=== PATIENT | female | born 1980 | race Asian ===

== ENCOUNTER 2016-10-30 22:37 | Emergency (ER) | payer OTHER ==
[~2016-10-30] VITALS: Ht 154.9 cm; Wt 52.6 kg
[~2016-10-30 22:37] MED LIST: FEROSUL325 MG PO; MOTRIN 800MG T800 MG PO
--- NOTE | 2016-10-30 23:02 | ED GI/GU/ABDOMINAL COMPLAINT ---
History of Present Illness General Chief Complaint: Female Urogenital Problems Stated Complaint: VAG BLEEDING, +HOME PREG TEST Source: patient Exam Limitations: no limitations Vital Signs & Intake/Output Vital Signs & Intake/Output Vital Signs Date Time Temp Pulse Resp B/P B/P Pulse O2 O2 Flow FiO2 Mean Ox Delivery Rate 10/31 0118 97.6 63 18 110/72 99 Room Air 10/30 2243 98.5 75 20 112/77 98 Room Air ED Intake and Output 10/31 0000 10/30 1200 Intake Total Output Total Balance Patient 116 lb Weight Weight Reported by Patient Measurement Method Allergies Coded Allergies: pollen extracts (Mild, SNEEZING, COUGHING, RUNNY NOSE 10/30/16) Reconcile Medications No Known Home Medications Triage Note: TRIAGE: PT TO ER C/C VAGINAL BLEEDING, ONSET THIS AFTERNOON. WAS SPOTTING AT FIRST BUT IS HEAVIER NOW. REPORTS HAS HAD "1 VERY HEAVY WET PAD" AND "THERE HAS BEEN CLOTTING". BLOOD WAS BRIGHT RED INTIALLY BUT NOW DARK RED IN COLOR. PT CURRENTLY PER HOME TEST DONE IN THE BEGINNING OF OCTOBER. 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 WILL SEE DR SIMS. /M1. DENIES N/V/D. /M1. DENIES N/V/D. SPOKE WITH STACEY ZEPEDA IN CBC, PT TO REMAIN IN ER FOR EVAL. Triage Nurses Notes Reviewed? yes ? y Is pt currently ? No Onset: Abrupt Duration: hour(s): Timing: recent history Location: vaginal bleeding Radiation: no radiation Activities at Onset: none Prior Abdominal Problems: pt had prior miscarriage Sexually Active: Yes Modifying Factors: Worsens With: other (vaginal bleeding). Associated Symptoms: vagnal bleeding HPI: 36-year-old woman presents with vaginal bleeding. Her last menstrual period was September 09. She had been feeling lower abdominal cramps for the past 2 weeks. She took a test tonight it was positive. She notes that she has had heavy vaginal bleeding, with occasional clots. She filled 1 pad with blood prior to arrival. She has no abdominal pain, nausea, vomiting, dizziness, syncopal symptoms. She is otherwise well. Past History Travel History Traveled to [place] past 21 day No Medical History Any Pertinent Medical History? 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 No Review of Systems Review of Systems Constitutional: Reports: no symptoms. EENTM: Reports: no symptoms. Respiratory: Reports: no symptoms. Cardiovascular: Reports: no symptoms. GI: Reports: no symptoms. Genitourinary: Reports: no symptoms. Musculoskeletal: Reports: no symptoms. Skin: Reports: no symptoms. Neurological/Psychological: Reports: no symptoms. Hematologic/Endocrine: Reports: no symptoms. Immunologic/Allergic: Reports: no symptoms. All Other Systems: Reviewed and Negative Physical Exam Physical Exam General Appearance: well developed/nourished, mild distress Head: atraumatic, normal appearance Eyes: Bilateral: normal appearance. Ears, Nose, Throat, Mouth: hearing grossly normal Neck: normal inspection, supple, full range of motion Respiratory: normal breath sounds, chest non-tender, no respiratory distress, quiet respiration, lungs clear Cardiovascular: regular rate/rhythm Gastrointestinal: normal bowel sounds, soft, non-tender Pelvic: copious dark blood in vaginal vault, difficult to visualize the cervix. Extremities: normal range of motion Neurologic/Psych: no motor/sensory deficits, awake, alert, oriented x 3 Skin: intact, normal color, warm/dry Core Measures ACS in differential dx? No Severe Sepsis Present: No Septic Shock Present: No Progress Differential Diagnosis: vaginal bleeding vs miscarriage vs other. Plan of Care: Orders Procedure Date/time Status TRICHOMONAS 10/30 2320 Complete POTASSIUM HYDROXIDE (MARLA) 10/30 2320 Complete GENITAL CULTURE 10/30 2320 Active CHLAMYDIA-GC DNA PROBE 10/30 2320 Active URINALYSIS 10/30 2242 Complete HUMAN BETA HCG TITRE 10/30 2242 Complete COMPREHENSIVE METABOLIC PANEL 10/30 2242 Complete CBC WITHOUT DIFFERENTIAL 10/30 2242 Complete Laboratory Tests 10/30/168: Urine Color YEL, Urine Clarity CLEAR, Urine pH 7.0, Ur Specific [place] 1.020, Urine Protein NEG, Urine Ketones NEG, Urine Nitrite NEG, Urine Bilirubin NEG, Urine Urobilinogen 0.2, Ur Leukocyte Esterase NEG, Ur Microscopic SEDIMENT EXAMINED, Urine RBC 15-25 H, Urine WBC RARE, Ur Epithelial Cells RARE, Urine Bacteria RARE H, Urine Mucus FEW, Urine Hemoglobin MOD H, Urine Glucose NEG 10/30/16 2300: Anion Gap 14, Estimated GFR > 60, BUN/Creatinine Ratio 16.3, Glucose 88, Calcium 9.6, Total Bilirubin 0.9, AST 27, ALT 45, Alkaline Phosphatase 45, Total Protein 9.0 H, Albumin 5.1 H, Globulin 3.9, Albumin/Globulin Ratio 1.3, Beta HCG, Quant 3867.8, CBC w Diff NO MAN DIFF REQ, RBC 5.47 H, MCV 72.6 L, MCH 23.3 L, RDW 14.0, MPV 9.1, Gran % 52.6, Lymphocytes % 31.4, Monocytes % 5.9, Eosinophils % 9.5 H, Basophils % 0.6, Absolute Granulocytes 4.0, Absolute Lymphocytes 2.4, Absolute Monocytes 0.4, Absolute Eosinophils 0.7, Absolute Basophils 0, PUBS MCHC 32.1 L Microbiology 10/31 28 GENITAL: GC DNA Probe - RECD 10/31 28 GENITAL: Chlamydia DNA Probe (DERIC) - RECD 10/31 28 GENITAL: MARLA Preparation - COMP 10/31 28 GENITAL: Trichomonas Preparation - COMP 10/31 28 GENITAL: Genital Culture - RECD Diagnostic Imaging: Viewed by Me: Ultrasound. Discussed w/RAD: Ultrasound. Radiology Impression: transabd u/s... endometrial sac noted, might be artifact... serial hcg and u/s recommended. Initial ED EKG: none Prior EKG: unchanged Repeat EKG: unchanged Comments: PATIENT: SCOTT TUCKER PRESENT AGE: 36 PATIENT ACCOUNT NO: [id number] : 82 LOCATION: [facility] ORDERING PHYSICIAN: GARCÍA SAMPSON MD SERVICE DATE: 10/30/164643 EXAM TYPE: US - US TRANSVAG EXAMINATION: US TRANSVAGINAL CLINICAL INFORMATION: Vaginal bleeding/. Question ectopic. COMPARISON: None available. TECHNIQUE: Real-time grayscale sonographic imaging is performed transabdominally and then transvaginally for better visualization. FINDINGS: Exam is very limited by bowel gas. Possible slightly irregular 0.6 cm gestational sac appreciated within the endometrial cavity however this finding is not verified on the transvaginal exam. The mean sac diameter corresponds to a gestational age of 5 weeks 1 day. Endometrial stripe thickness is 1 cm. Right ovary measures 3.0 x 1.8 x 1.7 cm. No adnexal lesion. Normal Doppler waveforms. Left ovary measures 2.1 x 1.1 x 1.0 cm. No adnexal lesions. Normal Doppler waveforms. There is fluid within the pelvic cul-de-sac. IMPRESSION: Exam is very limited by bowel gas. Possible irregular 0.6 cm gestational sac identified within the endometrial cavity. Of note this is only seen on the transabdominal exam and not visualized on the transvaginal exam suggesting that this finding may be artifactual. In light of the history, serial beta hCG and follow-up ultrasounds are recommended. No adnexal lesions. DICTATED BY: DIONISIO MAO MD DATE/TIME DICTATED:10/31/16124 PROJECT MANAGER FINANCE:STACY DATE/TIME TRANSCRIBED:10/31/16124 CONFIDENTIAL, DO NOT COPY WITHOUT APPROPRIATE AUTHORIZATION. <Electronically signed in Other Vendor System> SIGNED BY: DIONISIO MAO MD 10/31/16 0132 Departure Departure Disposition: HOME OR SELF CARE Condition: Stable Clinical Impression Primary Impression: Threatened miscarriage Referrals: WENDY COSBY DO (PCP/Family) Departure Forms: Customer Survey General Discharge Information Prescriptions: Current Visit Scripts No Known Home Medications Comments 10/31/16, 0:28.... 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 if u/s showed IUP , pt to follow up later today in office. If ectopic, dr. alaniz to take pt to OR. 10/31/16, 1:45am... discussed with dr. harris and related results of the u/s... pt to be seen later today in her office. Critical Care Note Critical Care Note Critical Care Time: 30-74 min
[2016-10-30 23:10] LABS: ABSOLUTE BASOPHIL COUNT 0 /CUMM (0.0-0.2); ABSOLUTE EOSINOPHIL COUNT 0.7 /CUMM (0.0-0.7); ABSOLUTE LYMPH COUNT 2.4 /CUMM (1.2-3.4); ABSOLUTE MONOCYTE COUNT 0.4 /CUMM (0.10-0.60); BASOPHIL % 0.6 % (0.0-2.0); EOSINOPHIL % 9.5 % (0-5); GRANULOCYTE % 52.6 % (42.2-75.2); HEMATOCRIT 39.8 % (37-47); MEAN CORPUSCULAR HGB 23.3 PG (27.0-31.0); MEAN CORPUSCULAR HGB CONC 32.1 G/DL (33.0-37.0); MEAN CORPUSCULAR VOLUME 72.6 FL (81.0-99.0); MEAN PLATELET VOLUME 9.1 FL (7.4-10.4); PLATELET COUNT 342 /CUMM (130-400); RED BLOOD CELL CT 5.47 /CUMM (4.20-5.40); WHITE BLOOD CELL COUNT 7.7 /CUMM (4.8-10.8)
[2016-10-31 01:18] VITALS: BP 110/72
--- NOTE | 2016-10-31 01:32 | ULTRASOUND REPORT ---
EXAMINATION: US TRANSVAGINAL CLINICAL INFORMATION: Vaginal bleeding/. Question ectopic. COMPARISON: None available. TECHNIQUE: Real-time grayscale sonographic imaging is performed transabdominally and then transvaginally for better visualization. FINDINGS: Exam is very limited by bowel gas. Possible slightly irregular 0.6 cm gestational sac appreciated within the endometrial cavity however this finding is not verified on the transvaginal exam. The mean sac diameter corresponds to a gestational age of 5 weeks 1 day. Endometrial stripe thickness is 1 cm. Right ovary measures 3.0 x 1.8 x 1.7 cm. No adnexal lesion. Normal Doppler waveforms. Left ovary measures 2.1 x 1.1 x 1.0 cm. No adnexal lesions. Normal Doppler waveforms. There is fluid within the pelvic cul-de-sac. IMPRESSION: Exam is very limited by bowel gas. Possible irregular 0.6 cm gestational sac identified within the endometrial cavity. Of note this is only seen on the transabdominal exam and not visualized on the transvaginal exam suggesting that this finding may be artifactual. In light of the history, serial beta hCG and follow-up ultrasounds are recommended. No adnexal lesions.
== END 2016-10-31 01:52 ==
LOC: ERH 22:37
PROVIDERS: Pediatrics
DX: O20.0 Threatened abortion (principal)
CPT/HCPCS: 87070; 76817; 81001; 87491; 87591